=== PATIENT | female | born 1985 | race Caucasian/White ===

== ENCOUNTER 2025-01-13 15:00 | Inpatient (IN) | payer OTHER ==
[~2025-01-13] VITALS: Ht 162.6 cm; Wt 100.7 kg
[~2025-01-13 15:00] MED LIST: NAPROXEN500 MG PO; PRENATAL TABLE1 EACH PO
[2025-01-14 18:58] VITALS: BP 138/70
[2025-01-14] MEDS ORDERED: CLINDAMYCIN PHOSPHATE 150 MG/ML (900mg) IV STA (19:13)
[2025-01-14] MEDS ORDERED: MORPHINE SULFATE 4 MG/ML CARTRIDGE IV STA (19:14)
[2025-01-14] MEDS ORDERED: RINGERS SOLUTION,LACTATED 1,000 ML IV SCH (19:15)
[2025-01-14 19:40] LABS: BASO % 0.3 % (0.1-1.2); EOS # 0.02 (0.04-0.54); EOS % 0.2 % (0.7-7.0); LYMPH # 1.87 (1.18-3.74); LYMPH % 16.4 % (19.3-53.1); MEAN PLATELET VOLUME 10.80 fl (9.4-12.4); MONO # 0.75 (0.24-0.82); MONO % 6.6 % (4.7-12.5); NEUT # 8.65 (1.56-6.13); NEUT % 76.1 % (34.0-71.1); RED CELL DISTRIBUTION WIDTH 13.9 % (11.6-14.4)
[2025-01-14 20:02] LABS: INR 0.96
[2025-01-15] MEDS ORDERED: OXYTOCIN 1,000 ML IV SCH (00:15)
[2025-01-15] MEDS ORDERED: MORPHINE SULFATE 4 MG/ML CARTRIDGE IV PRN (00:15)
[2025-01-15] MEDS ORDERED: MORPHINE SULFATE 4 MG/ML VIAL IV ONE ×2 (01:10→01:40)
[2025-01-15] MEDS ORDERED: CARBOPROST TROMETHAMINE 250 MCG/ML AMPUL IM ONE (01:15)
[2025-01-15] MEDS ORDERED: OXYTOCIN 10 UNITS/ML VIAL IV ONE (01:15)
[2025-01-15] MEDS ORDERED: METHYLERGONOVINE MALEATE 0.2 MG/ML AMPUL IV ONE (01:15)
[2025-01-15] MEDS ORDERED: ERYTHROMYCIN BASE OPHT 1GM EACH TUBE OP ONE (01:15)
[2025-01-15 02:57] VITALS: BP 114/61
[2025-01-15 08:00] VITALS: BP 104/55
[2025-01-15 11:54] LABS: BASO % 0.2 % (0.1-1.2); EOS # 0.01 (0.04-0.54); EOS % 0.1 % (0.7-7.0); LYMPH # 1.61 (1.18-3.74); LYMPH % 12.2 % (19.3-53.1); MEAN PLATELET VOLUME 11.20 fl (9.4-12.4); MONO # 1.03 (0.24-0.82); MONO % 7.8 % (4.7-12.5); NEUT # 10.51 (1.56-6.13); NEUT % 79.5 % (34.0-71.1); RED CELL DISTRIBUTION WIDTH 13.9 % (11.6-14.4)
[2025-01-15 18:54] VITALS: BP 105/66
[2025-01-16] VITALS: BP 122/78
[2025-01-16] MEDS ORDERED: OxyCODONE HCL 5 MG TABLET (ROXICODONE) PO PRN (06:00)
[2025-01-16 08:30] VITALS: BP 115/69
[2025-01-16 16:00] VITALS: BP 116/75
[2025-01-17 02:12] VITALS: BP 108/69
[2025-01-17 08:35] VITALS: BP 116/76
== END 2025-01-17 13:46 | disposition home or self-care (01) | DRG 788 ==
LOC: LDR 01-14 19:07 → O/R 01-14 19:07 → OB/GYN 01-14 19:07 → O/R 01-14 22:56 → OB/GYN 01-15 01:11 → LDR 01-23 15:00
PROVIDERS: Obstetrics & Gynecology; ADMIT Obstetrics & Gynecology Maternal & Fetal Medicine; ATTEND Obstetrics & Gynecology Maternal & Fetal Medicine
PROC: 4A1HXCZ Monitoring of Products of Conception, Cardiac Rate, External Approach (ICD-10-PCS; 2025-01-14)
PROC: 10D00Z1 Extraction of Products of Conception, Low, Open Approach (ICD-10-PCS; principal; 2025-01-15)
DX: O33.8 Maternal care for disproportion of other origin (principal); Z3A.39 39 weeks gestation of pregnancy; Z37.0 Single live birth